=== PATIENT | male | born 1965 ===

== ENCOUNTER 2017-11-03 02:22 | Emergency (ER) | payer SELFPAY ==
[2017-11-03 02:31] VITALS: O2SAT 98
--- NOTE | 2017-11-03 03:30 | C.PDOC ---
History Of Present Illness 51 years old male presents to ED with complaints of pain in the left shoulder after slipping and falling from a bus and landing on it. Patient denies any other physical complaints. Time Seen by Provider: 11/03/17 02:35 Chief Complaint (Nursing): Upper Extremity Problem/Injury History Per: Patient History/Exam Limitations: no limitations Onset/Duration Of Symptoms: Hrs Current Symptoms Are (Timing): Still Present Quality: "Pain" Severity: Moderate Pain Scale Rating Of: 5 Past Medical History Reviewed: Historical Data, Nursing Documentation, Vital Signs Vital Signs: Last Vital Signs Temp 97.5 F L 11/03/17 06:08 Pulse 80 11/03/17 06:08 Resp 14 11/03/17 06:08 BP 130/80 11/03/17 06:08 Pulse Ox 98 11/03/17 06:08 - Medical History PMH: No Chronic Diseases Surgical History: No Surg Hx Family History: States: No Known Family Hx - Social History Hx Alcohol Use: No Hx Substance Use: No - Immunization History Hx Tetanus Toxoid Vaccination: No Hx Influenza Vaccination: No Hx Pneumococcal Vaccination: No Review Of Systems Constitutional: Negative for: Fever Gastrointestinal: Negative for: Nausea, Vomiting Musculoskeletal: Positive for: Shoulder Pain (Left shoulder) Neurological: Negative for: Weakness, Numbness Psych: Negative for: Depression, Suicidal ideation Physical Exam - Physical Exam Appears: Non-toxic, Other (uncomfortable) Skin: Warm, Dry Head: Atraumatic, Normacephalic Eye(s): bilateral: Normal Inspection Oral Mucosa: Moist Neck: Supple Chest: Symmetrical, No Tenderness Cardiovascular: Rhythm Regular Respiratory: No Rales, No Rhonchi, No Wheezing Gastrointestinal/Abdominal: Soft, No Tenderness Extremity: Tenderness (left shoulder), No Swelling, Other (Decreased ROM in left shoulder; secondary to pain) Neurological/Psych: Oriented x3, Normal Speech, Normal Cognition ED Course And Treatment O2 Sat by Pulse Oximetry: 98 (Room air) Pulse Ox Interpretation: Normal - CT Scan/US CT left shoulder Other Rad Studies (CT/US): Read By Radiologist, Radiology Report Reviewed CT/US Interpretation: EXAM: CT Left Upper Extremity Without Intravenous Contrast, Shoulder. CLINICAL HISTORY: 51 years old, male; Pain; Shoulder; Left ; Additional info: Shoulder injury, ? FX. TECHNIQUE: Axial computed tomography images of the left shoulder without intravenous contrast. All CT scans at. this facility use one or more dose reduction techniques, viz.: automated exposure control; ma/kV. adjustment per patient size (including targeted exams where dose is matched to indication; i.e. head);. or iterative reconstruction technique. Coronal and sagittal reformatted images were created and reviewed. COMPARISON: No relevant prior studies available. FINDINGS: Bones/joints: No acute fracture. No dislocation. Soft tissues: Unremarkable. Lung apices: Minimal atelectasis. IMPRESSION: 1. No fracture. 2. If pain persists, consider nonemergent MRI for further evaluation. 3. Incidental/non- acute findings are described above. Thank you for allowing us to participate in the care of your patient. Progress Note: Patient was given arm sling, Rx for Percocet and follow up instructions. Medical Decision Making Medical Decision Making: Administered Toradol and Tylenol. Ordered X-ray of humerus and left shoulder. X-Ray looks questionable therefore CT ordered. Disposition - Disposition Referrals: Bill Padgett MD [Staff Provider] - [facility] [Outside] [facility] [place] [Outside] Disposition: HOME/ ROUTINE Disposition Time: 03:27 Condition: STABLE Additional Instructions: Follow up with Orthopedist within 1-2 days. Return to ED if feel worse. Prescriptions: Ibuprofen [Motrin Tab] 600 mg PO Q8 #30 tab oxyCODONE/Acetaminophen [Percocet 5/325 mg Tab] 1 tab PO QID PRN #20 tab PRN Reason: Pain Instructions: Shoulder Sprain (ED) Forms: iLike (Faroese) Print Language: MACEDONIAN - Clinical Impression Clinical Impression: Shoulder injury - PA / [employer] / Resident Statement MD/ has reviewed & agrees with the documentation as recorded. - Scribe Statement The provider has reviewed the documentation as recorded by the Genaroibfeng Anderson All medical record entries made by the Genaroibfeng were at my direction and personally dictated by me. I have reviewed the chart and agree that the record accurately reflects my personal performance of the history, physical exam, medical decision making, and the department course for this patient. I have also personally directed, reviewed, and agree with the discharge instructions and disposition.
--- NOTE | 2017-11-03 05:44 | CT ---
EXAM: CT Left Upper Extremity Without Intravenous Contrast, Shoulder CLINICAL HISTORY: 51 years old, male; Pain; Shoulder; Left; Additional info: Shoulder injury, ? FX TECHNIQUE: Axial computed tomography images of the left shoulder without intravenous contrast. All CT scans at this facility use one or more dose reduction techniques, viz.: automated exposure control; ma/kV adjustment per patient size (including targeted exams where dose is matched to indication; i.e. head); or iterative reconstruction technique. Coronal and sagittal reformatted images were created and reviewed. COMPARISON: No relevant prior studies available. FINDINGS: Bones/joints: No acute fracture. No dislocation. Soft tissues: Unremarkable. Lung apices: Minimal atelectasis. IMPRESSION: 1. No fracture. 2. If pain persists, consider nonemergent MRI for further evaluation. 3. Incidental/non-acute findings are described above.
[2017-11-03 06:08] VITALS: BP 130/80; PULSE 80; RESP 14; TEMP 97.5
--- NOTE | 2017-11-03 17:43 | RAD ---
PROCEDURE: Radiographs of the Left Shoulder HISTORY: fall COMPARISON: No prior. FINDINGS: BONES: Normal. No fracture. JOINTS: Normal. Glenohumeral and acromioclavicular joints preserved. No osteoarthritis. SOFT TISSUES: Normal. OTHER FINDINGS: None. IMPRESSION: No evidence of acute fracture or dislocation.
--- NOTE | 2017-11-03 17:45 | RAD ---
PROCEDURE: Radiographs of the left humerus. HISTORY: fall COMPARISON: None. FINDINGS: BONES: Normal. No fracture or focal lesion. SOFT TISSUES: Normal. OTHER FINDINGS: None. IMPRESSION: Normal radiographs of left humerus.
== END 2017-11-03 06:09 | disposition home or self-care (01) ==
LOC: C.ER 02:22
DX: S49.92XA Unspecified injury of left shoulder and upper arm, initial encounter (principal); W01.0XXA Fall on same level from slipping, tripping and stumbling without subsequent striking against object, initial encounter
CPT/HCPCS: 73030; 73060; 73200; 96372; 99283; J1885

== ENCOUNTER 2019-02-24 11:46 | Emergency (ER) | payer OTHER ==
[2019-02-24 11:56] VITALS: BMI 25.6
[2019-02-24] MEDS ORDERED: Sodium Chloride 0.9% 1,000 ML IV ONE (12:42)
[2019-02-24 12:49] LABS: BASO % 0.3 % (0.0-2.0); EOS % 0.3 % (0.0-4.0); HEMOGLOBIN 15.6 g/dL (12.0-18.0); LYMPH # 1.1 K/uL (1.0-4.3); LYMPH % 9.1 % (20.0-40.0); MEAN CELL VOLUME 89.3 fL (80.0-94.0); MEAN CORPUSCULAR HEMOGLOBIN 30.9 pg (27.0-31.0); MEAN CORPUSCULAR HGB CONC 34.6 g/dL (33.0-37.0); MEAN PLATELET VOLUME 9.5 fL (7.2-11.7); MONO # 0.5 K/uL (0.0-0.8); MONO % 4.6 % (0.0-10.0); NEUT # 10.3 K/uL (1.8-7.0); NEUT % 85.7 % (50.0-75.0); PLATELET COUNT 205 K/uL (130-400); RBC 5.04 Mil/uL (4.40-5.90); RED CELL DISTRIBUTION WIDTH 12.7 % (11.5-14.5)
[2019-02-24 13:01] LABS: ALB/GLOB RATIO 1.4 (1.0-2.1); ALBUMIN 4.4 g/dL (3.5-5.0); ALT/SGPT 35 U/L (21-72); AST/SGOT 27 U/L (17-59); BLOOD UREA NITROGEN 16 mg/dL (9-20); CALCIUM 9.7 mg/dl (8.6-10.4); GFR NON-AFRICAN AMERICAN > 60
[2019-02-24 13:03] LABS: PROTHROMBIN TIME 11.4 SECONDS (9.7-12.2)
--- NOTE | 2019-02-24 13:06 | RAD ---
Date of service: 02/24/2019 HISTORY: Chest pain COMPARISON: No prior. TECHNIQUE: Chest PA and lateral FINDINGS: LINES AND TUBES: None. LUNG AND PLEURA: The lungs are well inflated and clear. No pleural effusion or pneumothorax. HEART AND MEDIASTINUM: The heart is not enlarged. No aortic atherosclerotic calcifications present. The hilar and mediastinal contours are within normal limits. SKELETAL STRUCTURES: The bony structures are within normal limits for the patient's age. VISUALIZED UPPER ABDOMEN: Normal. OTHER FINDINGS: None. IMPRESSION: No active pulmonary disease.
--- NOTE | 2019-02-24 13:24 | C.PDOC ---
History Of Present Illness 53-year-old male presents to the ED for evaluation of sharp "shocking" pain to right anterior thigh that had sudden onset at around 1100 AM today. Patient states his pain radiates to his left shoulder and is associated with headache and dizziness, multiple episodes of non-bilious vomiting. Patient states symptoms lasted for around two hours and then self-resolved. At present time, patient is complaining of some dizziness, lightheaded. Patient denies recent illness, fever, chills, headache, vision change, focal deficits, neck pain, chest pain, palpitations, abdominal pain, hematemesis, diarrhea, back pain, UTI symptoms. Appears comfortable, not in any apparent distress. Time Seen by Provider: 02/24/19 12:01 Chief Complaint (Nursing): GI Problem History Per: Patient History/Exam Limitations: no limitations Onset/Duration Of Symptoms: Sudden Onset Current Symptoms Are (Timing): Better Additional History Per: Patient Past Medical History Reviewed: Historical Data, Nursing Documentation, Vital Signs Vital Signs: Last Vital Signs Temp 97.7 F 02/24/19 11:53 Pulse 78 02/24/19 11:53 Resp 18 02/24/19 11:53 BP 114/74 02/24/19 11:53 Pulse Ox 99 02/24/19 11:53 - Medical History PMH: No Chronic Diseases Surgical History: No Surg Hx Family History: States: Unknown Family Hx - Social History Hx Alcohol Use: No Hx Substance Use: No - Immunization History Hx Tetanus Toxoid Vaccination: No Hx Influenza Vaccination: No Hx Pneumococcal Vaccination: No Review Of Systems Constitutional: Negative for: Fever, Chills Eyes: Negative for: Vision Change Cardiovascular: Negative for: Chest Pain, Palpitations Gastrointestinal: Positive for: Vomiting. Negative for: Abdominal Pain, Diarrhea Musculoskeletal: Positive for: Shoulder Pain (left), Other (right anterior thigh) Neurological: Positive for: Headache, Dizziness Physical Exam - Physical Exam Appears: Well, Non-toxic, No Acute Distress Skin: Normal Color, Warm, No Rash, No Ecchymosis Head: Normacephalic Eye(s): bilateral: PERRL Neck: Trachea Midline, No Midline Cervical Tenderness, No Paracervical Tender ness, Supple Chest: Symmetrical, No Deformity, No Tenderness Cardiovascular: Rhythm Regular, No Murmur Respiratory: Normal Breath Sounds, No Rales, No Rhonchi, No Wheezing Gastrointestinal/Abdominal: Soft, No Tenderness, No Guarding, No Rebound Extremity: Normal ROM, No Tenderness, Capillary Refill (less than 2 seconds ), No Deformity, No Swelling Neurological/Psych: Oriented x3, Normal Speech, Normal Cognition, Normal Motor, Normal Sensation ED Course And Treatment - Laboratory Results Result Diagrams: 02/24/19 12:45 02/24/19 12:45 Lab Results: PT 11.4 SECONDS (9.7-12.2) 02/24/19 12:48 INR 1.0 02/24/19 12:48 APTT 26.0 SECONDS (21-34) 02/24/19 12:48 Total Bilirubin 0.4 mg/dL (0.2-1.3) 02/24/19 12:45 AST 27 U/L (17-59) 02/24/19 12:45 ALT 35 U/L (21-72) 02/24/19 12:45 Alkaline Phosphatase 55 U/L (38-126) 02/24/19 12:45 Total Protein 7.7 g/dL (6.3-8.3) 02/24/19 12:45 Albumin 4.4 g/dL (3.5-5.0) 02/24/19 12:45 Globulin 3.2 gm/dL (2.2-3.9) 02/24/19 12:45 Albumin/Globulin Ratio 1.4 (1.0-2.1) 02/24/19 12:45 Lab Interpretation: Abnormal ECG: Interpreted By Me, Viewed By Me Interpretation Of ECG: SR@75/min, NAD, no acute T wave or ST-T changes O2 Sat by Pulse Oximetry: 99 (on RA) Pulse Ox Interpretation: Normal - Radiology CXR: Interpreted by Me, Read By Radiologist CXR Interpretation: Yes: No Acute Disease - Other Rad CXR X-Ray: Viewed By Me, Read By Radiologist Interpretation: Date of service: 02/24/2019. HISTORY: Chest pain. COMPARISON: No prior. TECHNIQUE: Chest PA and lateral. FINDINGS: LINES AND TUBES: None. LUNG AND PLEURA: The lungs are well inflated and clear. No pleural effusion or pneumothorax. HEART AND MEDIASTINUM: The heart is not enlarged. No aortic atherosclerotic calcifications present. The hilar and mediastinal contours are within normal limits. SKELETAL STRUCTURES: The bony structures are within normal limits for the patient's age. VISUALIZED UPPER ABDOMEN: Normal. OTHER FINDINGS: None. IMPRESSION: No active pulmonary disease. - CT Scan/US CT head w/o contrast Other Rad Studies (CT/US): Radiology Report Reviewed CT/US Interpretation: Accession No. : [id number]. Patient Name / ID : TERESITA PEREZ / [id number]. Exam Date : 02/24/2019 13:24:37 ( Approved ). Study Comment : Sex / Age : M / 53Y. Creator : Madalyn Cornell MD. Dictator : Madalyn Cornell MD. Drier Helper : Clerk General : Madalyn Cornell MD. Approver2 : Report Date : 02/24/2019 13:42:05. My Comment : . Date of service: 02/24/2019. PROCEDURE: CT HEAD WITHOUT CONTRAST. HISTORY: dizziness, headache. COMPARISON: None available. TECHNIQUE: Axial computed tomography images were obtained through the head/brain without intravenous contrast. Radiation dose: Total exam DLP = 986.43 mGy-cm. This CT exam was performed using one or more of the following dose reduction techniques: Automated exposure control, adjustment of the mA and/or kV according to patient size, and/or use of iterative reconstruction technique. FINDINGS: HEMORRHAGE: No intracranial hemorrhage. BRAIN: No mass effect or edema. The carroll-white matter differen tiation appears intact. Please note that MRI with diffusion imaging is more sensitive in the detection of acute ischemic event. VENTRICLES: No hydrocephalus. CALVARIUM: Unremarkable. PARANASAL SINUSES: Unremarkable as visualized. No significant inflammatory changes. MASTOID AIR CELLS: Unrema rkable as visualized. No inflammatory changes. OTHER FINDINGS: None. IMPRESSION: No acute intracranial pathology identified. CT A/P Other Rad Studies (CT/US): Radiology Report Reviewed CT/US Interpretation: Creator : Madalyn Cornell MD. Dictator : Madalyn Cornell MD. Drier Helper : Clerk General : Madalyn Cornell MD. Approver2 : Report Date : 02/24/2019 16:08:15. My Comment : . Date of service: 02/24/2019. PROCEDURE: CT Abdomen and Pelvis with contrast. HISTORY: diffuse Right upper and lower abd pain. COMPARISON: None available. TECHNIQUE: Contrast dose: 100 mL Omnipaque 350 IV. Radiation dose: Total exam DLP = 352.08 mGy-cm. This CT exam was performed using one or more of the following dose reduction techniques: Automated exposure control, adjustment of the mA and/or kV according to patient size, and/or use of iterative reconstruction technique. FINDINGS: LOWER THORAX: Bibasilar atelectasis. No visible pleural effusion or pneumothorax. LIVER: Unremarkable. GALLBLADDER AND BILE DUCTS: Unremarkable. PANCREAS: Unremarkable. SPLEEN: Unremarkable. ADRENALS: Unremarkable. KIDNEYS AND URETERS: The kidneys enhance symmetrically. No hydronephrosis or obstructing calculus identified. VASCULATURE: No aortic aneurysm. No atherosclerotic calcification or mural plaque present. BOWEL: Stomach is nondistended. Lack of oral contrast limits evaluation for bowel pathology. Bowel loops appear within normal limits of caliber without evidence of obstruction. Relatively short segment of wall thickening/narrowing of the colon at the hepatic flexure. APPENDIX: The appendix is not identified. No secondary signs of acute appendicitis. PERITONEUM: No significant free fluid. No definite free air. LYMPH NODES: No bulky adenopathy identified. BLADDER: Unremarkable. REPRODUCTIVE: Prostate gland measures approximately 3.7 x 4.8 cm. BONES: Degenerative changes. OTHER FINDINGS: None. IMPRESSION: Relatively short segment of wall thickening/narrowing of the colon at the hepatic flexure. Phyllis elate clinically for possibility of focal colitis. Recommend correlation with colonoscopy if recently performed, otherwise recommend follow-up as indicated. Mild bibasilar atelectasis. Additional findings as above. Findings discussed with Whit Foster on 02/24/19 at 3:57 p.m. Progress Note: Bloodwork, urinalysis, CXR, CT Head, EKG ordered and reviewed. IV Fluids given. Pt was OBS in for 3 hours and remained stable, asymptomatic now. On re-eval, pt is afberile, hemodynamicaly stable. Non-toxic. PulseOx 100% RA. Tolerate Po well in ED. neck: Supple, (-) JVD, (-) carotid bruits. Lungs: CTA B/L, BS equal B/L. CVS: (+)S1S2, reg, (-) murmur. Abd: benign, (-) guarding, (-) rebound. neuorlogicaly intact. Blood work review, mild leukocytosis, no left shift, chemistry- normal results. UA- normal. EKG, CXR- no acute abormalitis. CT A/P review and c/w mild colitis. Case review and discussed with ED attending DR. Gorman, abx with outpt f/u recommned. results review and discussed with pt, advised and ref. to f/u with PMD in 1-2 days for re-eav. if any worsening or new changes- return to ED for re-eavl, pt understand and agrees with plan. Disposition Counseled Patient/Family Regarding: Studies Performed, Diagnosis, Need For Followup, Rx Given - Disposition Referrals: [facility] at [facility] [Outside] Disposition: HOME/ ROUTINE Disposition Time: 16:12 Condition: STABLE Additional Instructions: Encourage fluids take medication as prescribed BRAt diet ( banana, rice, apple sauce, toast) for 2-3 days Follow up with PMD, GI in 2-3 days for re-evaluation return to ED if any worsening or new changes Prescriptions: Amoxicillin/Clavulanate [Augmentin 875 MG-125 MG] 1 tab PO BID #14 tab metroNIDAZOLE [Flagyl] 500 mg PO BID #14 tab Instructions: Colitis Forms: Accompanied To ED By:, [employer] (Azerbaijani), Work Excuse Print Language: ITALIAN - Clinical Impression Clinical Impression: Colitis - PA / CIVIL SERVICE CLERK / Resident Statement MD/DO has reviewed & agrees with the documentation as recorded. - Scribe Statement The provider has reviewed the documentation as recorded by the Scribe (Jennifer Low) All medical record entries made by the Scribe were at my direction and personally dictated by me. I have reviewed the chart and agree that the record accurately reflects my personal performance of the history, physical exam, medical decision making, and the department course for this patient. I have also personally directed, reviewed, and agree with the discharge instructions and disposition.
--- NOTE | 2019-02-24 13:46 | CT ---
Date of service: 02/24/2019 PROCEDURE: CT HEAD WITHOUT CONTRAST. HISTORY: dizziness, headache COMPARISON: None available. TECHNIQUE: Axial computed tomography images were obtained through the head/brain without intravenous contrast. Radiation dose: Total exam DLP = 986.43 mGy-cm. This CT exam was performed using one or more of the following dose reduction techniques: Automated exposure control, adjustment of the mA and/or kV according to patient size, and/or use of iterative reconstruction technique. FINDINGS: HEMORRHAGE: No intracranial hemorrhage. BRAIN: No mass effect or edema. The carroll-white matter differentiation appears intact. Please note that MRI with diffusion imaging is more sensitive in the detection of acute ischemic event. VENTRICLES: No hydrocephalus. CALVARIUM: Unremarkable. PARANASAL SINUSES: Unremarkable as visualized. No significant inflammatory changes. MASTOID AIR CELLS: Unremarkable as visualized. No inflammatory changes. OTHER FINDINGS: None. IMPRESSION: No acute intracranial pathology identified.
[2019-02-24 14:21] LABS: URINE BILIRUBIN NEGATIVE (NEGATIVE); URINE BLOOD NEGATIVE (NEGATIVE); URINE CLARITY Clear (Clear); URINE COLOR Yellow (YELLOW); URINE GLUCOSE (UA) NORMAL (Normal); URINE LEUKOCYTE ESTERASE NEG Leu/uL (Negative); URINE PROTEIN NEGATIVE (NEGATIVE); URINE UROBILINOGEN NORMAL mg/dL (0.2-1.0)
[2019-02-24 14:34] LABS: BANDS 1 % (0-2); LYMPHOCYTE 9 % (20-40); MONOCYTE 5 % (0-10); NEUTROPHIL 85 % (50-75); PLATELET ESTIMATE NORMAL (NORMAL); TOTAL CELLS COUNTED 100
[2019-02-24 14:36] LABS: BARBITURATES, UR NEGATIVE (NEGATIVE); BENZODIAZEPINES, UR NEGATIVE (NEGATIVE); OPIATES, UR NEGATIVE (NEGATIVE); PHENCYCLIDINE, UR NEGATIVE (NEGATIVE)
[2019-02-24] MEDS ORDERED: Iohexol 350mg/ml 100 ML ONE (14:52)
--- NOTE | 2019-02-24 16:11 | CT ---
Date of service: 02/24/2019 PROCEDURE: CT Abdomen and Pelvis with contrast HISTORY: diffuse Right upper and lower abd pain COMPARISON: None available. TECHNIQUE: Contrast dose: 100 mL Omnipaque 350 IV Radiation dose: Total exam DLP = 352.08 mGy-cm. This CT exam was performed using one or more of the following dose reduction techniques: Automated exposure control, adjustment of the mA and/or kV according to patient size, and/or use of iterative reconstruction technique. FINDINGS: LOWER THORAX: Bibasilar atelectasis. No visible pleural effusion or pneumothorax. LIVER: Unremarkable. GALLBLADDER AND BILE DUCTS: Unremarkable. PANCREAS: Unremarkable. SPLEEN: Unremarkable. ADRENALS: Unremarkable. KIDNEYS AND URETERS: The kidneys enhance symmetrically. No hydronephrosis or obstructing calculus identified. VASCULATURE: No aortic aneurysm. No atherosclerotic calcification or mural plaque present. BOWEL: Stomach is nondistended. Lack of oral contrast limits evaluation for bowel pathology. Bowel loops appear within normal limits of caliber without evidence of obstruction. Relatively short segment of wall thickening/narrowing of the colon at the hepatic flexure. APPENDIX: The appendix is not identified. No secondary signs of acute appendicitis. PERITONEUM: No significant free fluid. No definite free air. LYMPH NODES: No bulky adenopathy identified. BLADDER: Unremarkable. REPRODUCTIVE: Prostate gland measures approximately 3.7 x 4.8 cm. BONES: Degenerative changes. OTHER FINDINGS: None. IMPRESSION: Relatively short segment of wall thickening/narrowing of the colon at the hepatic flexure. Correlate clinically for possibility of focal colitis. Recommend correlation with colonoscopy if recently performed, otherwise recommend follow-up as indicated. Mild bibasilar atelectasis. Additional findings as above. Findings discussed with Whit Foster on 02/24/19 at 3:57 p.m.
[2019-02-24 16:54] VITALS: BP 115/80; PULSE 74; RESP 18; TEMP 97.8
[2019-02-24 18:18] VITALS: O2SAT 99
--- NOTE | 2019-02-25 12:41 | CARD ---
APPROVED REPORT Date of service: 02/24/2019 EKG Measurement Heart [id number] <Conclusion> Normal sinus rhythm Normal ECG
== END 2019-02-24 17:15 | disposition home or self-care (01) ==
LOC: C.ER 11:46
DX: K52.9 Noninfective gastroenteritis and colitis, unspecified (principal)
CPT/HCPCS: 70450; 71046; 74177; 80053; 81001; 84484; 85025; 85610; 85730; 93005; 96360; 99285; G0480; J7030; Q9967